=== PATIENT | female | born 1950 | race Caucasian/White ===

== ENCOUNTER → 2020-12-23 09:28 | Outpatient (CLI) | payer MEDICARE, OTHER, SELFPAY ==
--- NOTE | ~2020-12-23 | XR_ITS ---
XR hand LT 2V DATE: 12/23/2020 09:57 INDICATION: Left hand pain TECHNIQUE: AP and lateral views COMPARISON: None FINDINGS: There is osteopenia. No fracture, dislocation, periosteal reaction or bone destruction or erosive change. There is osteoarthritis at the first carpometacarpal and interphalangeal joints. IMPRESSION: Osteopenia and osteoarthritis Reviewed, dictated and finalized at location B.
--- NOTE | ~2020-12-23 | XR_ITS ---
XR hand RT 2V DATE: 12/23/2020 09:57 INDICATION: Bilateral hand pain TECHNIQUE: AP and lateral views COMPARISON: None FINDINGS: Osteopenia. No fracture, dislocation, periosteal reaction or bone destruction or erosive change. There is osteoar thritis at the interphalangeal joints primarily. IMPRESSION: Osteopenia and osteoarthritis Reviewed, dictated and finalized at location B.
== END ==
PROVIDERS: PCP Family Medicine Sports Medicine; Visit Provider Physician Assistant
DX: M85.841 Other specified disorders of bone density and structure, right hand (principal); M85.842 Other specified disorders of bone density and structure, left hand; M19.041 Primary osteoarthritis, right hand; M19.042 Primary osteoarthritis, left hand
CPT/HCPCS: 73120

== ENCOUNTER → 2021-01-11 13:28 | Outpatient (CLI) | payer MEDICARE, OTHER, SELFPAY ==
--- NOTE | ~2021-01-11 | MM_ITS ---
EXAMINATION: MM screening [facility] BI w shameka HISTORY: Screening TECHNIQUE: Craniocaudal and mediolateral oblique 3-D tomosynthesis images were obtained and synthetic 2-D images were generated. CAD analysis was submitted and interpreted. COMPARISON: Comparison to multiple prior studies sequentially, with oldest reviewed study dated 06/30. BREAST PARENCHYMAL COMPOSITION: . Breast composed of scattered areas of fibroglandular density FINDINGS: There are asymmetries in the outer aspect of the left breast on CC view. The right breast i s stable without evidence for malignancy. IMPRESSION: 1. Developing left breast asymmetries. 2. Additional mammographic views and possible breast ultrasound are recommended. BI-RADS Category 0: Incomplete: Needs additional imaging evaluation. Reviewed, dictated and finalized at location A. IMPRESSION: 1. Developing left breast asymmetries. 2. Additional mammographic views and possible breast ultrasound are recommended . BI-RADS Category 0: Incomplete: Needs additional imaging evaluation.
== END ==
PROVIDERS: Visit Provider Obstetrics & Gynecology
DX: Z12.31 Encounter for screening mammogram for malignant neoplasm of breast (principal); R92.8 Other abnormal and inconclusive findings on diagnostic imaging of breast
CPT/HCPCS: 77063; 77067

== ENCOUNTER → 2021-02-09 08:34 | Outpatient (CLI) | payer MEDICARE, OTHER, SELFPAY ==
--- NOTE | ~2021-02-09 | MMUS_ITS ---
EXAMINATION: MM diagnostic calista LT w shameka, US breast LT limited HISTORY: Follow-up left breast asymmetry TECHNIQUE: Additional 3-D tomosynthesis images of the left breast were performed and synthetic 2-D im ages were generated. CAD analysis was submitted and interpreted. High resolution Limited left breast ultrasound was performed. COMPARISON: 01/11/2021 BREAST PARENCHYMAL COMPOSITION: Breast composed of scattered areas of fibroglandular density. FINDINGS: MAMMOGRAPHIC FINDINGS: There is a persistent incompletely circumscribed mass in the upper outer quadrant of the left breast. There are no suspicious calcifications or architectural distortion. ULTRASOUND: Limited left breast ultrasound: At 2:00, 5 cm from the nipple, there is a normal-appearing 7 mm intra mammary lymph node. At 3:00, 3 cm from the nipple, there is an irregular shaped hypoechoic mass with internal vascularity and no significant posterior features measuring 8 x 7 x 7 mm. IMPRESSION: 1. Irregular shaped hypoechoic left breast mass at 3:00, 3 cm from the nipple. 2. Ultrasound-guided left breast biopsy recommended. BI-RADS category 4, suspicious findings. Reviewed, dictated and finalized at location A. IMPRESSION: 1. Irregular shaped hypoechoic left breast mass at 3:00, 3 cm from the nipple. 2. Ultrasound-guided left breast biopsy recommended. BI-RADS category 4, suspicious findings.
== END ==
PROVIDERS: Visit Provider Obstetrics & Gynecology
DX: R92.8 Other abnormal and inconclusive findings on diagnostic imaging of breast (principal)
CPT/HCPCS: 76642; 77061; 77065; G0279

== ENCOUNTER 2021-09-27 00:17 | Day surgery (SDC) | payer MEDICARE, OTHER, SELFPAY ==
[2021-09-14 13:57] VITALS: BMI 22.6
--- NOTE | 2021-09-14 14:16 | PC.NURSE ---
Report to the Outpatient Waiting Room, entrance under the green pavilion located off [facility], at time __12:30PM on date __09/27/21 . OR Time: __2:30PM . - You and your visitor will be asked a series of questions to screen for COVID 19 for your protection. - A mask is required within the hospital. Preoperative COVID Testing Requirements: No COVID Test needed if: (proof is required; if not received patient will have Rapid Test prior to entry) - Patient has received COVID Vaccine at least 14 days prior to procedure date or - Patient has positive COVID test result within last 90 days of surgery date. COVID Test needed if above criteria is not met If not COVID vaccinated a COVID test must be conducted within 72 hours of surgery and patient is asked to isolate self from time of testing until procedure. You will go to the [facility] for your COVID testing. The [facility] is located at the corner of [address] [facility]. You will only be called if COVID results are positive and your surgeon may reschedule your elective surgery date. Patients may have clear liquids (water, carbonated beverages, clear teas, apple juice) until 3 hours prior to surgery with a maximum of 20 ounces. - No food from midnight until time of surgery - Infants may have breast milk until 4 hours before surgery, formula 6 hours prior to surgery. - Children will be allowed to drink immediately following surgery. If applicable, please bring a bottle or sippy cup to assist with drinking. Juice, water, soda, and popsicles are readily available. For infants on formula, please bring formula the day of surgery. Pacifiers are allowed. Take the following medications with a SIP of water the morning of surgery: __LEVOTHYROXINE, ALPRAZOLAM NEEDED Medications to discontinue per physician HOLD ALL VITAMINS/SUPPLEMENTS 3 DAYS PRE-OP Date to take last dose____09/23/21 Please no make-up, nail gabonese, hairspray, perfume, deodorant, or body powder the day of surgery. No jewelry (including any body piercings) or valuables the day of surgery, leave them at home. Please take a shower or bath the night before, or the morning of, surgery with an antibacterial soap. Wear comfortable, loose fitting clothing. Children are encouraged to wear pajamas. - Jewelry must be removed prior to entering the operating room. Rings and piercings that are not removed may be cut off. - The hospital will not accept responsibility for valuables. - Please leave all valuables, including medications, at home the day of surgery. If you are going home after surgery, a licensed pick up and delivery driver must drive you home. - NO public transportation without another adult. - We recommend that an adult stay with you for 24 hours following discharge. - We also recommend that you do not drive, make important decision, drink alcoholic beverages, or take any drugs that were not prescribed by your health care provider for at least 24 hours after your discharge time. For Pediatric surgeries, we recommend two adults accompany the child home (only one inside the building at this time). One visitor will be allowed to accompany the patient into the hospital. Patients visitor will be instructed to remain with patient at all times or leave the building. We will allow the visitor to come back to the postoperative area when patient is ready. Follow any additional instructions given to you from your surgeon. Telephone instructions given to ___PATIENT and asked if any additional questions and then verbalized understanding. Patient advised to call surgeon office or pre surgery nurse liaison [phone] if any additional questions.
--- NOTE | 2021-09-26 13:59 | WPDANESEPPF ---
Anes - Initial Pre Proc Eval Procedure: Operation Date: 09/27/21 14:30 Proposed Procedures p Hysteroscopy Dilation and Curettage - Gene Camejo MD Date/Time: 09/26/21 13:59 Surgeon: Gene Camejo MD Pre Op Diagnosis: post menopausal bleeding Patient Data Age: 71 Gender: F Height: 1.63 m Weight: 60 kg Allergies Allergy/AdvReac Type Severity Reaction Status Date / Time propoxyphene AdvReac Unknown Nausea Verified 09/27/21 12:49 Home Medications Medication Instructions Recorded Confirmed Type alprazolam 0.5 mg PO BID PRN 09/14/21 09/14/21 History cholecalciferol (vitamin D3) 50 mcg PO DAILY 09/14/21 09/14/21 History darifenacin 15 mg PO DAILY 09/14/21 09/14/21 History latanoprost 1 drp EACH EYE HS 09/14/21 09/14/21 History levothyroxine 100 mcg PO QAM 09/14/21 09/14/21 History meloxicam 15 mg PO DAILY 09/14/21 09/14/21 History djisatqt-ehyg-SH-calcium-mins 1 tablet PO DAILY 09/14/21 09/14/21 History [Daily Multiple For Women] hydrocodone-acetaminophen 1 - 2 tablet PO Q6H PRN #20 tablet 09/27/21 Rx Patient hx anesthesia problems: none Family hx anesthesia problems: none Results Review: All pre-operative results and documents have been reviewed as part of the pre-operative evaluation. [facility] Past Medical History Medical History (Updated 09/27/21 @ 13:21 by Gene Camejo MD) Anxiety Glaucoma Hypothyroidism Skin cancer Surgical History Surgical History (Updated 09/26/21 @ 13:59 by Blaine Núñez DO) History of cholecystectomy Social History Social History Smoking packs per day: 0.5 Smoking cigarettes per day: 10.0 Years smoked: 4 Smoking pack-years: 2.00 Smoking status: Former smoker Tobacco type: cigarettes Smoking end date: 12/09/71 Alcohol intake: current Substance use: never Living arrangements: with family Additional living arrangements comments: HUSB Spiritual care concerns: No Anes - Eval Final PreProcedure Day of Procedure 09/26/21 13:59 Patient weight: normal Heart: regular rate and rhythm Lungs: clear to auscultation and normal air movement Airway: Mallampati scale class II Neurological: alert and oriented Last oral intake: >/= 8 hours ASA classification: II Emergent: no Anesthetic plan: proceed Anesthesia type and monitoring: general GIVS and standard monitoring Results Review: All pre-operative results and documents have been reviewed as part of the pre-operative evaluation. Informed Consent: The patient's anesthetic plan and its attendant risks and benefits were discussed with the patient/family/POA. Questions were solicited and answers provided to the satisfaction of the patient/family/POA.
[2021-09-27 12:57] VITALS: BP 157/85; PULSE 107; RESP 18; TEMP 36.4; O2SAT 99; BMI 23.3
[2021-09-27] MEDS: ACETAMINOPHEN 500 MG TABLET 1000 MG PO (13:02)
--- NOTE | 2021-09-27 13:19 | PM.IMHP ---
H&P: HPI History of Present Illness Date/Time: 09/27/21 13:19 71 y/o female with postmenopausal vaginal bleeding and a thickened endometrial complex on ultrasound. Chief Complaint: Bleeding Review of Systems Review of Systems: All systems reviewed & are unremarkable except as noted in HPI and below PMFSH Past Medical History Medical History Anxiety Glaucoma Hypothyroidism Skin cancer Surgical History Surgical History History of cholecystectomy Social History Social History Smoking packs per day: 0.5 Smoking cigarettes per day: 10.0 Years smoked: 4 Smoking pack-years: 2.00 Smoking status: Former smoker Tobacco type: cigarettes Smoking end date: 12/09/71 Alcohol intake: current Substance use: never Living arrangements: with family Additional living arrangements comments: HUSB Spiritual care concerns: No Meds Home Medications and Allergies Home Medications Medication Instructions Recorded Confirmed Type alprazolam 0.5 mg PO BID PRN 09/14/21 09/27/21 History cholecalciferol (vitamin D3) 50 mcg PO DAILY 09/14/21 09/27/21 History darifenacin 15 mg PO DAILY 09/14/21 09/27/21 History latanoprost 1 drp EACH EYE HS 09/14/21 09/27/21 History levothyroxine 100 mcg PO QAM 09/14/21 09/27/21 History meloxicam 15 mg PO DAILY 09/14/21 09/27/21 History jtyhlimy-amcc-LZ-calcium-mins 1 tablet PO DAILY 09/14/21 09/27/21 History [Daily Multiple For Women] Allergies Allergy/AdvReac Type Severity Reaction Status Date / Time propoxyphene AdvReac Unknown Nausea Verified 09/27/21 12:49 Vital Signs Vital Signs - 24 hr 09/27/21 12:57 Temperature 36.4 C L Pulse Rate 107 H Respiratory Rate 18 Blood Pressure 157/85 H Pulse Oximetry 99 Exam Const: Orientation/consciousness: patient oriented x3 Other: Well-developed, well-nourished female in no acute distress. Neck: Thyroid: thyroid normal Lymphatic: no lymphadenopathy noted (in neck, axilla or inguinal nodes) Resp: Effort & Inspection: normal respiratory effort Auscultation: clear to auscultation bilaterally Cardio: Rate: regular rate Rhythm: regular rhythm Heart sounds: S1 normal heart sound present and S2 normal heart sound present GI: Other: ABD: Soft, nontender, nondistended. No guarding or rebound tenderness. No hepatosplenomegaly. : General: Yes no CVA tenderness Other: External genitalia: normal female hair distribution, without lesion. Urethral meatus: no lesion, non prolapsed. Bladder: no mass, nontender Vagina: atrophic, without lesion or discharge. Cervix: no lesion or discharge. Uterus: small, anteverted, freely mobile, nontender Adnexa: no mass or tenderness. Anus/perineum: no lesions, nontender Back/Spine/Pelvis: Back: no CVA tenderness Skin: General skin exam: normal color and no rashes or lesions noted Neuro: General: patient oriented x3 Extrem: Other: Extremities: nontender with no edema Psych: Mental Status: mental status grossly normal Affect: normal affect Assessment and Plan Assessment and plan (1) Postmenopausal bleeding: Code(s): N95.0 - Postmenopausal bleeding Status: Acute Assessment and Plan: Offered hysteroscopy with dilation and curettage, for both diagnosis and treatment of her problem. She understands risks of surgery to include risks of anesthesia, risks of pain, infection, bleeding, blood products, thromboembolic phenomena and damage to adjacent structures such as bowel, bladder, ureters, blood vessels and nerves. She understands all these risks and elects to proceed with surgery. (2) Abnormal pelvic ultrasound: Code(s): R93.89 - Abnormal findings on diagnostic imaging of other specified body structures Status: Acute
--- NOTE | 2021-09-27 13:23 | WPDHPUPDATE1 ---
History and Physical Update Update Date/Time: 09/27/21 13:23 History and Physical has been reviewed, including an updated exam of the patient. There are NO changes in the patient's condition. Risks, benefits, and alternatives have been discussed and questions answered. Patient agrees to proceed with procedure.
[2021-09-27] MEDS: LACTATED RINGERS 1,000 ML 30 ML IV CONT (13:35)
[2021-09-27] MEDS: ceFAZolin SODIUM 1 GM VIAL 2 GM IV PUSH (14:45)
[2021-09-27 14:49] VITALS: BP 132/67; PULSE 84; RESP 15; O2SAT 96
--- NOTE | 2021-09-27 14:53 | W.PM.PROC2 ---
Procedure Note - Detailed Date of Procedure 09/27/21 Pre-op Diagnosis post menopausal bleeding Post-op Diagnosis Same Procedure Performed Hysteroscopy Dilation and sharp curettage Surgeon Gene Camejo MD Anesthesia MAC and Local (1% lidocaine) Findings Some granulation tissue of vaginal epithelium consistent with pessary use. Atrophic endometrium. Both tubal ostia seen. Scant curettings. Dimple at posterior uterine fundus somewhat suspicious for perforation, but not demonstrated with certainty. Description of Procedure The patient was taken to the operating room where she was prepared and draped in the usual sterile fashion in the dorsal lithotomy position. The bladder was drained with a red rubber catheter. A sterile speculum was placed into the vagina. The anterior lip of the cervix was grasped with single-tooth tenaculum. Ten mL of 1% lidocaine was administered in a paracervical block. The cervix was then gently dilated using Hegar dilators until a 7 mm dilator could be passed. Hysteroscopy was performed using sterile saline as a distention medium. Findings are as noted above. Sharp curettage was then performed, and endometrial curettings were collected on a Telfa pad and passed off to be sent to pathology. A second look was taken with the hysteroscope, and a dimple in the posterior fundal region was noted. A uterine perforation was not definitively diagnosed, but we opted to administer 2 g Ancef IV to cover her, in case the complication had in fact occurred. Hemostasis was excellent. Sponge, lap, needle and instrument counts were correct. The patient was awakened and taken to the recovery room in stable condition. I was present and scrubbed through the entire procedure. Implants None Estimated Blood Loss 5 Drains No Packing No Pathology Yes (endometrial curettings) Complications None ( Dimple at uterine fundus posteriorly a little suspicious for perforation, but a perforation was not able to be definitively demonstrated. I informed the patient's , Vahid, after the conclusion of the procedure. The patient herself was also notified after she had awakened.) Condition Stable Disposition PACU
[2021-09-27 15:35] VITALS: BP 161/72; PULSE 82; RESP 16
== END 2021-09-27 16:05 | disposition home or self-care (01) ==
PROVIDERS: PCP Family Medicine Sports Medicine; Visit Provider Obstetrics & Gynecology
PROC: 0U5B8ZZ Destruction of Endometrium, Via Natural or Artificial Opening Endoscopic (ICD-10-PCS; CPT 58563; principal; 2021-09-27 14:30)
DX: N95.0 Postmenopausal bleeding (principal); N85.8 Other specified noninflammatory disorders of uterus; E03.9 Hypothyroidism, unspecified; H40.9 Unspecified glaucoma; F41.9 Anxiety disorder, unspecified; Z87.891 Personal history of nicotine dependence
CPT/HCPCS: 58558; 88305; A9270; J0690; J2704; J3010; J7030; J7120

== ENCOUNTER → 2022-01-16 16:39 | Outpatient (CLI) | payer MEDICARE, OTHER, SELFPAY ==
--- NOTE | ~2022-01-16 | MM_ITS ---
EXAMINATION: MM screening [facility] BI w shameka HISTORY: Screening mammogram TECHNIQUE: Craniocaudal and mediolateral oblique 3-D tomosynthesis images were obtained and synthetic 2-D images were generated. CAD analysis was submitted and interpreted. COMPARISON: 02/09/2021, 01/11/2021, 10/10/2017, 10/03/2017 BREAST PARENCHYMAL COMPOSITION: There are scattered areas of fibroglandular density. FINDINGS: There has been interval biopsy change in the left breast. There is no suspicious mass, calc ification, or architectural distortion to suggest malignancy in either breast. There has been no susp icious interval change. IMPRESSION: 1. No mammographic evidence of malignancy. 2. Recommend routine screening mammography in one year. BI-RADS Category 1: Negative Reviewed, dictated and finalized at location A.
== END ==
PROVIDERS: PCP Obstetrics & Gynecology; Visit Provider Obstetrics & Gynecology
DX: Z12.31 Encounter for screening mammogram for malignant neoplasm of breast (principal)
CPT/HCPCS: 77063; 77067

== ENCOUNTER → 2023-03-14 14:05 | Outpatient (CLI) | payer MEDICARE, OTHER, SELFPAY ==
--- NOTE | ~2023-03-14 | MM_ITS ---
EXAMINATION: MM screening [facility] BI w shameka HISTORY: Screening mammogram TECHNIQUE: Craniocaudal and mediolateral oblique 3-D tomosynthesis images were obtained and synthetic 2-D images were generated. CAD analysis was submitted and interpreted. COMPARISON: 01/16/2022, 02/09/2021, 01/11/2021, 10/10/2017, 10/03/2017 BREAST PARENCHYMAL COMPOSITION: There are scattered areas of fibroglandular density. FINDINGS: No suspicious mass, calcification, or architectural distortion are identified in either lawrence ast to suggest malignancy. There has been no suspicious interval change. IMPRESSION: 1. No mammographic evidence of malignancy. 2. Recommend routine screening mammography in one year. BI-RADS Category 1: Negative Reviewed, dictated and finalized at location A.
== END ==
PROVIDERS: PCP Obstetrics & Gynecology; Visit Provider Obstetrics & Gynecology
DX: Z12.31 Encounter for screening mammogram for malignant neoplasm of breast (principal)
CPT/HCPCS: 77063; 77067

== ENCOUNTER → 2023-04-26 14:30 | Outpatient (CLI) | payer MEDICARE, OTHER, SELFPAY ==
--- NOTE | ~2023-04-26 | CT_ITS ---
EXAMINATION: CT abdomen pelvis wo/w con DATE: 04/26/2023 15:31 INDICATION: Abdominal pain. Hematuria. TECHNIQUE: Computed tomography (CT) of the abdomen and pelvis was performed without and with intraven ous contrast using a total of 130 mL Omnipaque-350 intravenous contrast with a double-bolus technique for simultaneous opacification of the renal parenchyma and renal collecting system. Automated exposu re control and iterative reconstruction technique were employed. The dose-length product was 932.18 m Gy-cm. COMPARISON: CT abdomen and pelvis 04/22/2014 FINDINGS: The visualized portions of the lung bases demonstrate mild atelectasis. No pleural effusion. There ar e cysts in the liver measuring up to 5.5 cm. There are changes of cholecystectomy. The spleen, pancre as, and adrenal glands are normal. There are cysts in the kidneys measuring up to 14 mm on the left. There is no urolithiasis. There is a calyceal diverticulum in right kidney. The ureters are well opac ified and are normal. The bladder is normal. There is a pessary in the vagina. There is a 4.1 cm cyst in left ovary. There is diverticulosis of the colon without evidence of diverticulitis. There are no dilated loops of bowel. The appendix is not visualized. There is calcified atherosclerosis of the ao rta and many of the other arteries. There are no pathologically enlarged lymph nodes. There is no pilar e intraperitoneal fluid. There is lumbar levoscoliosis and severe spondylosis. IMPRESSION: 1. No etiology for hematuria. 2. 4.1 cm cyst in left ovary, likely benign. Pelvis ultrasound is recommended in one year. Reviewed, dictated and finalized at location A. VIORAL HEALTH SPECIALIST IMPRESSION: 1. No etiology for hematuria. 2. 4.1 cm cyst in left ovary, likely benign. Pelvis ultrasound is recommended i n one year.
[2023-04-26 15:04] LABS: Estimated Glomerular Filt Rate > 60
== END ==
PROVIDERS: PCP Family Medicine; Visit Provider Nurse Practitioner
DX: R31.9 Hematuria, unspecified (principal); R10.9 Unspecified abdominal pain; R11.0 Nausea; N83.202 Unspecified ovarian cyst, left side
CPT/HCPCS: 74178; Q9967

== ENCOUNTER 2024-03-18 10:05 | Outpatient (CLI) | payer MEDICARE, OTHER, SELFPAY ==
--- NOTE | ~2024-03-18 | MM_ITS ---
EXAMINATION: MM screening [facility] BI w shameka HISTORY: Screening TECHNIQUE: Craniocaudal and mediolateral oblique 3-D tomosynthesis images were obtained and synthetic 2-D images were generated. CAD analysis was submitted and interpreted. COMPARISON: Comparison to multiple prior studies sequentially, with oldest reviewed study dated 10/03. BREAST PARENCHYMAL COMPOSITION: Not dense: There are scattered areas of fibroglandular density. FINDINGS: There is no evidence of suspicious mass, calcification, or architectural distortion to sugg est malignancy in either breast. There has been no suspicious interval change. IMPRESSION: 1. No mammographic evidence of malignancy. 2. Recommend routine screening mammography in one year. BI-RADS Category 1: Negative Reviewed, dictated and finalized at location B.
== END 2024-03-18 10:06 | disposition home or self-care (01) ==
PROVIDERS: PCP Family Medicine; Visit Provider Obstetrics & Gynecology
DX: Z12.31 Encounter for screening mammogram for malignant neoplasm of breast (principal)
CPT/HCPCS: 77063; 77067

== ENCOUNTER 2024-07-31 13:27 | Outpatient (CLI) | payer MEDICARE, OTHER, SELFPAY ==
--- NOTE | ~2024-07-31 | US_ITS ---
EXAMINATION: US transvaginal DATE: 07/31/2024 13:55 INDICATION: Ovarian cyst. TECHNIQUE: Multiple transabdominal sonographic images of the pelvis were obtained. COMPARISON: CT abdomen and pelvis 04/26/2023, 04/22/14 FINDINGS: The uterus measures 4.5 x 2.0 x 3.0 cm. There is no free fluid in the pelvis. The endometri al complex measures 4 mm in thickness. The right ovary is not visualized. There is a 4.3 x 3.0 x 4.0 cm cystic mass with peripheral low-level echoes in the left ovary. IMPRESSION: 1. 4.3 cm cystic mass in the left ovary, stable from 04/26/2023, probably benign. Given the periphera l low-level echoes, consider pelvis MRI without and with contrast to exclude a solid component. Reviewed, dictated and finalized at location A. ER DEPARTMENT MANAGER IMPRESSION: 1. 4.3 cm cystic mass in the left ovary, stable from 04/26/2023, probably benig n. Given the peripheral low-level echoes, consider pelvis MRI without and with contrast to exclude a solid component.
== END 2024-07-31 13:28 | disposition home or self-care (01) ==
LOC: MICIMG 13:29
PROVIDERS: PCP Family Medicine; Visit Provider Nurse Practitioner
DX: N83.202 Unspecified ovarian cyst, left side (principal)
CPT/HCPCS: 76830

== ENCOUNTER 2024-08-25 09:16 | Outpatient (CLI) | payer MEDICARE, OTHER, SELFPAY ==
--- NOTE | ~2024-08-25 | MR_ITS ---
MRI of the pelvis Clinical history disorder of ovary, fallopian tube, hematuria TECHNIQUE: Axial T2-weighted and T2 fat-sat images, T1-weighted in and out of phase images, and T1 po stcontrast images were performed. Coronal T2-weighted and sagittal T2-weighted images were performed. Following intravenous administration of 10 cc MultiHance gadolinium, T1-weighted fat-sat imaging was performed in the axial and coronal planes. FINDINGS: Urinary bladder unremarkable. Uterus unremarkable. There is a 4.2 cm left ovarian simple cy st. Probable small right ovarian cyst measuring up to 9 mm in diameter. No lymphadenopathy or ascites seen. Visualized bowel loops are essentially unremarkable. IMPRESSION: 4.2 cm left ovarian cyst. Probable subcentimeter right ovarian cysts. Reviewed, dictated and finalized at [facility].
== END 2024-08-25 09:17 | disposition home or self-care (01) ==
LOC: MICIMG 09:18
PROVIDERS: PCP Family Medicine; Visit Provider Nurse Practitioner
DX: R31.9 Hematuria, unspecified (principal); N83.8 Other noninflammatory disorders of ovary, fallopian tube and broad ligament; N83.202 Unspecified ovarian cyst, left side
CPT/HCPCS: 72197; A9577

== ENCOUNTER 2025-03-25 10:06 | Outpatient (CLI) | payer MEDICARE, SELFPAY ==
--- NOTE | ~2025-03-25 | MM_ITS ---
EXAMINATION: MM screening [facility] BI w shameka HISTORY: Screening TECHNIQUE: Craniocaudal and mediolateral oblique 3-D tomosynthesis images were obtained and synthetic 2-D images were generated. CAD analysis was submitted and interpreted. COMPARISON: 03/14/2023 BREAST PARENCHYMAL COMPOSITION: The breasts are heterogeneously dense, which may obscure small masses. FINDINGS: There is no evidence of suspicious mass, calcification, or architectural distortion to suggest malignancy. There has been no suspicious interval change. IMPRESSION: 1. No mammographic evidence of malignancy. Recommend routine screening mammography in one year. BI-RADS Category 2: Benign finding(s) Reviewed, dictated and finalized at location Q. IMPRESSION: 1. No mammographic evidence of malignancy. Recommend routine screening mammogra phy in one year. BI-RADS Category 2: Benign finding(s)
== END 2025-03-25 10:07 | disposition home or self-care (01) ==
PROVIDERS: PCP Family Medicine; Visit Provider Obstetrics & Gynecology
DX: Z12.31 Encounter for screening mammogram for malignant neoplasm of breast (principal)
CPT/HCPCS: 77063; 77067